=== PATIENT | male | born 2000 | race Hispanic/Latino ===

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

== ENCOUNTER 2020-03-03 17:16 | Emergency (ER) | payer SELFPAY ==
[2020-03-03] MEDS ORDERED: DEXAMETHASONE SOD PHOSPHATE 10MG/ML 1ML VIAL ONE (18:04)
[2020-03-03] MEDS ORDERED: GUAIFENESIN SUGAR-FREE 100 MG/5 ML UDCUP ONE (18:04)
[2020-03-03 18:11] LABS: RAPID GROUP A STREP NEGATIVE (NEGATIVE)
== END 2020-03-03 18:36 | disposition home or self-care (01) ==
LOC: EDH 17:16
DX: B34.9 Viral infection, unspecified (principal); Z20.828 Contact with and (suspected) exposure to other viral communicable diseases; Z72.0 Tobacco use
CPT/HCPCS: 71045; 87426; 87804 ×2; 87880; 96372; 99284; J1100; U0003

== ENCOUNTER 2023-04-01 00:24 | Emergency (ER) | payer BC, OTHER ==
[~2023-04-01] VITALS: Ht 172.7 cm; Wt 98.4 kg
[2023-04-01 00:48] LABS: APPEARANCE,URINE CLEAR (CLEAR); BILIRUBIN,URINE NEGATIVE (NEGATIVE); COLOR,URINE YELLOW (YELLOW); GLUCOSE, URINE (UA) NEGATIVE (NEGATIVE); KETONES,URINE 5 mg/dL (NEGATIVE); LEUKOCYTE ESTERASE ,URINE NEGATIVE Leu/uL (NEGATIVE); NITRATE,URINE NEGATIVE (NEGATIVE); OCCULT BLOOD,URINE NEGATIVE (NEGATIVE); PH,URINE 6.5 (5.0-8.0); PROTEIN,URINE 20 mg/dL (NEGATIVE); UROBILINOGEN,URINE 6 mg/dL (0.2-1.0)
[2023-04-01 00:49] LABS: ADD UA MICROSCOPIC YES
[2023-04-01 00:52] LABS: MUCUS,URINE MANY LPF (None Seen); SQUAMOUS EPITHELIAL CELL,UR RARE /HPF (0-2); WBC,URINE 0-1 /HPF (0-1)
[2023-04-01] MEDS ORDERED: KETOROLAC 30MG VIAL (30MG/ML) IVP ONE (03:00)
[2023-04-01] MEDS ORDERED: FAMOTIDINE 20MG VIAL IV ONE (03:00)
[2023-04-01] MEDS ORDERED: 0.9%NACL 1000ML 1,000 ML IV ONE (03:00)
[2023-04-01] MEDS ORDERED: METOCLOPRAMIDE 10 MG/2 ML VIAL IVP ONE (03:00)
[2023-04-01 03:29] LABS: CREATININE 0.8 mg/dL (0.5-1.5); POTASSIUM 3.9 mmol/L (3.5-5.1)
[2023-04-01 03:35] LABS: BASOPHILS # (AUTO) 0.02 K/uL (0.00-0.20); BASOPHILS % (AUTO) 0.3 % (0.0-5.0); EOSINOPHILS # (AUTO) 0.05 K/uL (0.00-0.70); EOSINOPHILS % (AUTO) 0.7 % (0.0-8.0); IMMATURE GRANULOCYTE ABSOLUTE 0.07 K/uL (0-1); LYMPHOCYTES # (AUTO) 1.9 K/uL (1.0-4.8); LYMPHOCYTES % (AUTO) 27.7 % (21.0-51.0); MEAN CORPUSCULAR HEMOGLOBIN 30.6 pg (27.0-33.0); MEAN CORPUSCULAR HGB CONC 33.7 g/dL (32.0-36.0); MEAN CORPUSCULAR VOLUME 90.7 fL (79-99); MONOCYTES # (AUTO) 0.6 K/uL (0.1-1.0); MONOCYTES % (AUTO) 9.1 % (3.0-13.0); NEUTROPHILS # (AUTO) 4.2 K/uL (1.8-7.7); NEUTROPHILS % (AUTO) 61.2 % (40.0-77.0); PLATELET COUNT (AUTO) 248 K/uL (130-400); RED BLOOD CELL COUNT(AUTO) 3.86 MIL/uL (4.50-6.20); RED CELL DISTRIBUTION WIDTH 11.4 % (11.0-15.5); WHITE BLOOD COUNT (AUTO) 6.9 K/uL (4.8-10.8)
[2023-04-01 03:39] LABS: COVID19 (SARS ANTIGEN RAPID) PRESUMPTIVE NEGATIVE (NEGATIVE); INFLUENZA TYPE A Negative For Type A (NEGATIVE); INFLUENZA TYPE B Negative For Type B (NEGATIVE)
[2023-04-01 04:56] VITALS: BP 128/68; PULSE 86; RESP 18; O2SAT 100
== END 2023-04-01 04:56 | disposition home or self-care (01) ==
LOC: EDH 00:24
DX: R30.0 Dysuria (principal); Z20.822 Contact with and (suspected) exposure to COVID-19
CPT/HCPCS: 99284; 96374; 96375; 96361; 87426; 80048; 85025; 87880; 87804 ×2; 81001; 36415; J3490; J7030; J1885; J2765

== ENCOUNTER 2023-07-31 15:44 | Emergency (ER) | payer BC ==
[~2023-07-31] VITALS: Ht 172.7 cm; Wt 83.9 kg
[2023-07-31] MEDS: SOLU-MEDROL 125MG VIAL IVP STA (16:20)
[2023-07-31] MEDS: FAMOTIDINE 20MG VIAL IV STA (16:20)
[2023-07-31] MEDS: DiphenhydrAMINE HCL 50 MG/ML VIAL IV STA (16:20)
[2023-07-31] MEDS: KETOROLAC 30MG VIAL (30MG/ML) IVP STA (16:23)
[2023-07-31] MEDS ORDERED: PRED20TA3 PO (17:02)
[2023-07-31 17:10] VITALS: BP 124/79; PULSE 50; RESP 16; O2SAT 98
== END 2023-07-31 17:40 | disposition home or self-care (01) ==
LOC: EDH 15:44
DX: T78.49XA Other allergy, initial encounter (principal); T63.441A Toxic effect of venom of bees, accidental (unintentional), initial encounter; Y92.89 Other specified places as the place of occurrence of the external cause
CPT/HCPCS: 99284; 96374; 96375; J1200; J3490; J2919; J1885

== ENCOUNTER 2023-08-02 19:17 | Emergency (ER) | payer BC ==
[~2023-08-02] VITALS: Ht 172.7 cm; Wt 81.2 kg
[~2023-08-02 19:17] MED LIST changes: -KETOROLAC TROMETHAMINE 30MG/ML ONE; -ORPHENADRINE CITRATE 30 MG/ML ML ONE; +PRED20TA3 PO
[2023-08-02 20:02] LABS: BASOPHILS # (AUTO) 0.01 K/uL (0.00-0.20); BASOPHILS % (AUTO) 0.1 % (0.0-5.0); EOSINOPHILS # (AUTO) 0.03 K/uL (0.00-0.70); EOSINOPHILS % (AUTO) 0.4 % (0.0-8.0); HEMATOCRIT 41.6 % (42-54); IMMATURE GRANULOCYTE ABSOLUTE 0.02 K/uL (0-1); LYMPHOCYTES # (AUTO) 1.5 K/uL (1.0-4.8); LYMPHOCYTES % (AUTO) 21.3 % (21.0-51.0); MEAN CORPUSCULAR HEMOGLOBIN 30.3 pg (27.0-33.0); MEAN CORPUSCULAR HGB CONC 34.1 g/dL (32.0-36.0); MEAN CORPUSCULAR VOLUME 88.9 fL (79-99); MONOCYTES # (AUTO) 0.4 K/uL (0.1-1.0); NEUTROPHILS % (AUTO) 71.9 % (40.0-77.0); PLATELET COUNT (AUTO) 299 K/uL (130-400); RED BLOOD CELL COUNT(AUTO) 4.68 MIL/uL (4.50-6.20); RED CELL DISTRIBUTION WIDTH 11.6 % (11.0-15.5)
[2023-08-02 20:14] LABS: CREATININE 0.9 mg/dL (0.5-1.3); POTASSIUM 3.4 mmol/L (3.5-5.1)
[2023-08-02 20:18] LABS: ALBUMIN 3.5 g/dL (3.5-5.0); BILIRUBIN,TOTAL 1.1 mg/dL (0.2-1.0); TOTAL PROTEIN, SERUM 6.7 g/dL (6.0-8.3)
[2023-08-02] MEDS: LEVETIRACETAM 500 MG TABLET PO STA (21:05)
[2023-08-02] MEDS: LACTATED RINGERS 1000ML 1,000 ML IV ONE (21:05)
[2023-08-02] MEDS ORDERED: LEVE250T PO (21:52)
[2023-08-02 22:03] LABS: APPEARANCE,URINE CLEAR (CLEAR); BILIRUBIN,URINE NEGATIVE (NEGATIVE); COLOR,URINE LIGHT-YELLOW (YELLOW); GLUCOSE, URINE (UA) NEGATIVE (NEGATIVE); KETONES,URINE NEGATIVE (NEGATIVE); LEUKOCYTE ESTERASE ,URINE NEGATIVE Leu/uL (NEGATIVE); NITRATE,URINE NEGATIVE (NEGATIVE); OCCULT BLOOD,URINE NEGATIVE (NEGATIVE); PH,URINE 6.5 (5.0-8.0); PROTEIN,URINE NEGATIVE (NEGATIVE); UROBILINOGEN,URINE 0.2 mg/dL (0.2-1.0)
[2023-08-02 22:04] LABS: ADD UA MICROSCOPIC NO
[2023-08-02 22:11] LABS: AMPHET/METH SCREEN,URINE NEGATIVE (NEGATIVE); BARBITURATE SCREEN, URINE NEGATIVE (NEGATIVE); BENZODIAZEPINES SCREEN,URINE NEGATIVE (NEGATIVE); CANNABINOID SCREEN,URINE POSITIVE (NEGATIVE); COCAINE SCREEN,URINE NEGATIVE (NEGATIVE); OPIATE SCREEN,URINE NEGATIVE (NEGATIVE); PHENCYCLIDINE SCREEN,URINE NEGATIVE (NEGATIVE)
[2023-08-02 22:16] VITALS: BP 132/86; PULSE 64; RESP 16; O2SAT 99
== END 2023-08-02 22:18 | disposition home or self-care (01) ==
LOC: EDH 19:17
DX: R56.9 Unspecified convulsions (principal); Z79.52 Long term (current) use of systemic steroids
CPT/HCPCS: 99285; 70450; 96360; 82550; 80053; 80305; 85025; 81003; 36415; 72125; J7120

== ENCOUNTER 2023-08-07 12:37 | Emergency (ER) | payer OTHER, BC ==
[~2023-08-07] VITALS: Ht 177.8 cm; Wt 79.4 kg
[~2023-08-07 12:37] MED LIST changes: +LEVE250T PO
[2023-08-07 13:23] LABS: BASOPHILS # (AUTO) 0.04 K/uL (0.00-0.20); BASOPHILS % (AUTO) 0.2 % (0.0-5.0); EOSINOPHILS # (AUTO) 0.01 K/uL (0.00-0.70); HEMATOCRIT 42.7 % (42-54); IMMATURE GRANULOCYTE ABSOLUTE 0.19 K/uL (0-1); LYMPHOCYTES % (AUTO) 13.6 % (21.0-51.0); MEAN CORPUSCULAR HEMOGLOBIN 30.7 pg (27.0-33.0); MEAN CORPUSCULAR HGB CONC 34.2 g/dL (32.0-36.0); MEAN CORPUSCULAR VOLUME 89.9 fL (79-99); MONOCYTES # (AUTO) 2.2 K/uL (0.1-1.0); NEUTROPHILS # (AUTO) 16.7 K/uL (1.8-7.7); NEUTROPHILS % (AUTO) 75.3 % (40.0-77.0); PLATELET COUNT (AUTO) 351 K/uL (130-400); RED BLOOD CELL COUNT(AUTO) 4.75 MIL/uL (4.50-6.20); RED CELL DISTRIBUTION WIDTH 11.5 % (11.0-15.5); WHITE BLOOD COUNT (AUTO) 22.2 K/uL (4.8-10.8)
[2023-08-07 13:38] LABS: INR <= 0.93 (0.85-1.15); PROTHROMBIN TIME 10.5 SEC (9.6-11.6)
[2023-08-07 13:45] VITALS: PULSE 132; O2SAT 100
[2023-08-07 13:46] LABS: POTASSIUM 3.4 mmol/L (3.5-5.1)
[2023-08-07 13:56] LABS: ALBUMIN 4.1 g/dL (3.5-5.0); BILIRUBIN,TOTAL 0.9 mg/dL (0.2-1.0); TOTAL PROTEIN, SERUM 7.6 g/dL (6.0-8.3)
[2023-08-07] MEDS: MIDAZOLAM HCL 1 MG/ML 5ML VIAL IVP ONE (14:07)
[2023-08-07] MEDS: MIDAZOLAM HCL 5 MG/ML 2ML VIAL IV ONE (14:07)
[2023-08-07] MEDS ORDERED: IOHEXOL 350 MG/ML 100ML INFUS..BTL IV ONE (14:09)
[2023-08-07] MEDS: DEXMEDETOMIDINE 400MCG/NS100ML IV SCH (14:14)
[2023-08-07] MEDS: FENTANYL 1000MCG+NS 100ML 100 ML IV SCH (14:17)
[2023-08-07] MEDS: PROPOFOL 1000 MG/100 ML IV PRN (14:18)
[2023-08-07] MEDS: CEFAZOLIN SODIUM 2 GM VIAL ONE (14:18)
[2023-08-07] MEDS: ONDANSETRON 4MG INJ ONE (14:20)
[2023-08-07] MEDS: HYDROMORPHONE 1 MG INJ ONE (14:20)
[2023-08-07] MEDS: LORAZEPAM 2 MG/ML 1 ML VIAL IVP ONE ×2 (14:23)
[2023-08-07] MEDS: HYDROMORPHONE 1 MG INJ IVP ONE (14:23)
[2023-08-07] MEDS: ONDANSETRON 4MG INJ IVP ONE (14:23)
[2023-08-07] MEDS: KETAMINE HCL 100 MG/ML 5ML VIAL IJ ONE (14:24)
[2023-08-07 15:02] LABS: ADD UA MICROSCOPIC YES; APPEARANCE,URINE CLEAR (CLEAR); BILIRUBIN,URINE NEGATIVE (NEGATIVE); COLOR,URINE YELLOW (YELLOW); GLUCOSE, URINE (UA) NEGATIVE (NEGATIVE); KETONES,URINE 5 mg/dL (NEGATIVE); LEUKOCYTE ESTERASE ,URINE NEGATIVE Leu/uL (NEGATIVE); NITRATE,URINE NEGATIVE (NEGATIVE); PH,URINE 5.5 (5.0-8.0); PROTEIN,URINE 20 mg/dL (NEGATIVE); UROBILINOGEN,URINE 0.2 mg/dL (0.2-1.0)
[2023-08-07 15:03] LABS: BACTERIA,URINE RARE /HPF (None Seen); MUCUS,URINE RARE LPF (None Seen); WBC,URINE 0-1 /HPF (0-1)
[2023-08-07 15:09] LABS: AMPHET/METH SCREEN,URINE NEGATIVE (NEGATIVE); BARBITURATE SCREEN, URINE NEGATIVE (NEGATIVE); BENZODIAZEPINES SCREEN,URINE POSITIVE (NEGATIVE); CANNABINOID SCREEN,URINE POSITIVE (NEGATIVE); COCAINE SCREEN,URINE POSITIVE (NEGATIVE); OPIATE SCREEN,URINE NEGATIVE (NEGATIVE); PHENCYCLIDINE SCREEN,URINE NEGATIVE (NEGATIVE)
[2023-08-07 16:13] LABS: ABG BASE EXCESS -5.4 mmol/L (-2.0-3.0); ABG HCO3 19.7 mmol/L (21.0-28.0); ABG OXYGEN SATURATION 99.3 % (95.0-99.0); ABG PCO2 38 mmHg (35-48); ABG PH 7.339 (7.350-7.450); PO2, ARTERIAL BG 193.6 mmHg (83.0-108.0); VENT MODE, BG AC (ROOM AIR)
[2023-08-07 16:37] VITALS: BP 106/56; PULSE 73; RESP 24; O2SAT 100
[2023-08-07] MEDS: TETANUS/DIPHTHERIA TOXOID [ADULT] 0.5 ML VIAL IM ONE (17:46)
[2023-08-18] MEDS ORDERED: ACET-2079 PO (02:18)
[2023-08-18] MEDS ORDERED: TRAM50TA4 PO (02:18)
== END 2023-08-07 18:00 | disposition critical access hospital (66) ==
LOC: EDH 12:37
DX: S62.635A Displaced fracture of distal phalanx of left ring finger, initial encounter for closed fracture (principal); S62.633A Displaced fracture of distal phalanx of left middle finger, initial encounter for closed fracture; R41.82 Altered mental status, unspecified; F19.10 Other psychoactive substance abuse, uncomplicated; F10.129 Alcohol abuse with intoxication, unspecified; V49.3XXA Car occupant (driver) (passenger) injured in unspecified nontraffic accident, initial encounter; Y93.89 Activity, other specified; Y92.89 Other specified places as the place of occurrence of the external cause; Y99.8 Other external cause status; Y90.5 Blood alcohol level of 100-119 mg/100 ml
CPT/HCPCS: 82550; 83735; 84484; 80053; 82803; 80305; 85025; 85610; 85730; 86850; 86900; 86901; 81001; 36415; 90714; 71045; 73080; 73565; 73130 ×2; 73110; 70450; 72125; 71260; 74177; 96374; 99291; 96375; 31500; 36600; J3010 ×2; J1170; J2250 ×2; J2704; J2405; J2060; Q9967; J0690; A9900; 94002; J3490; 73560

== ENCOUNTER → 2024-05-07 | Emergency (ER) | payer BC ==
[~2024-05-07] MED LIST changes: +ALBUHFA IH; +AMOX1TAB16 PO; +BENZ-39 PO; +METH4TAB3 PO; -PRED20TA3 PO; +TRAM50TA4 PO
--- NOTE | 2024-05-07 23:06 | NUR ---
CALLED FOR PT IN [facility]OB[facility] TO TRIAGE, NO RESPONSE. PT NOT FOUND IN LOBBY
== END ==
LOC: EDH 22:37
DX: R07.89 Other chest pain (principal); R10.84 Generalized abdominal pain; Z53.21 Procedure and treatment not carried out due to patient leaving prior to being seen by health care provider